=== PATIENT | male | born 1990 | race Caucasian/White ===

== ENCOUNTER 2017-06-22 16:13 | Emergency (ER) | payer MEDICAID ==
[2017-06-22 16:17] VITALS: BP 130/91
[2017-06-22] MEDS ORDERED: METHYLPREDNISOLONE INJ 125 MG/2 ML SDV IV ONE (17:50)
--- NOTE | 2017-06-22 17:53 | ER Document Report ---
ED General - General Mode of Arrival: Ambulatory Information source: Patient TRAVEL OUTSIDE OF THE [place] IN LAST 30 DAYS: No - HPI Similar symptoms previously: Yes Recently seen / treated by doctor: No <MARIA A FITZGERALD - Last Filed: 06/22/17 20:13> <KATELIN LE - Last Filed: 06/22/17 20:15> - General Chief Complaint: Leg Pain Stated Complaint: EYE PROBLEM Time Seen by Provider: 06/22/17 16:51 Notes: Patient is a 27 year old male presenting to the emergency department for eye and leg pain x3 days ago. Patient states he was diagnosed with wegeners granulomatosis x2 years ago and feels like he is having a flare up. Patient states his eyes feel sore and are red. Patient's Neurontin dosage was increased about 3 days ago and is not helping his symptoms. Patient does receive chemotherapy x1 per year for this. Patient denies any blurry vision, chest pain or shortness of breath. Patient has an appointment next week with [facility] in [place] who follow his condition. (MARIA A FITZGERALD) - Related Data Allergies/Adverse Reactions: No Known Allergies Allergy (Verified 06/22/17 16:15) Past Medical History - General Information source: Patient - Social History Smoking Status: Current Every Day Smoker Chew tobacco use (# tins/day): No Frequency of alcohol use: Occasional Drug Abuse: None Family History: None Patient has suicidal ideation: No Patient has homicidal ideation: No - Medical History Medical History: Other - wegeners granulomatosis Surgical Hx: Negative - Immunizations Hx Diphtheria, Pertussis, Tetanus Vaccination: Yes <MARIA A FITZGERALD - Last Filed: 06/22/17 20:13> Review of Systems - Review of Systems Constitutional: No symptoms reported EENT: See HPI, Eye pain Cardiovascular: No symptoms reported Respiratory: No symptoms reported Gastrointestinal: No symptoms reported Genitourinary: No symptoms reported Male Genitourinary: No symptoms reported Musculoskeletal: See HPI, Other - leg pain Skin: No symptoms reported Hematologic/Lymphatic: No symptoms reported Neurological/Psychological: No symptoms reported -: Yes All other systems reviewed and negative <MARIA A FITZGERALD - Last Filed: 06/22/17 20:13> Physical Exam - Vital signs Interpretation: Normal <MARIA A FITZGERALD - Last Filed: 06/22/17 20:13> <KATELIN LE - Last Filed: 06/22/17 20:15> - Vital signs Vitals: Temp Pulse Resp BP Pulse Ox 97.7 F 68 18 130/91 H 97 06/22/17 16:15 06/22/17 16:15 06/22/17 16:15 06/22/17 16:15 06/22/17 16:15 - Notes Notes: GENERAL: Alert, interacts well. No acute distress. HEAD: Normocephalic, atraumatic. EYES: Pupils equal, round, and reactive to light. Extraocular movements intact. Conjunctival injection which is worse on the right side of his eyes bilaterally , no subconjunctival hemorrhage noted. ENT: Oral mucosa moist, tongue midline. Normal oropharynx. NECK: Full range of motion. Supple. Trachea midline. LUNGS: Clear to auscultation bilaterally, no wheezes, rales, or rhonchi. No respiratory distress. HEART: Regular rate and rhythm. No murmurs, gallops, or rubs. ABDOMEN: Soft, non-tender. Non-distended. Bowel sounds present in all 4 quadrants. EXTREMITIES: Moves all 4 extremities spontaneously. No edema. NEUROLOGICAL: Alert and oriented x3. Normal speech. PSYCH: Normal affect, normal mood. SKIN: Warm, dry, normal turgor. No rashes or lesions noted. (MARIA A FITZGERALD) Course - Laboratory Result Diagrams: 06/22/17 18:00 06/22/17 18:00 - Consults [facility] at [facility] Time consulted: 17:06 <MARIA A FITZGERALD - Last Filed: 06/22/17 20:13> - Laboratory Result Diagrams: 06/22/17 18:00 06/22/17 18:00 <KATELIN LE - Last Filed: 06/22/17 20:15> - Re-evaluation Re-evalutation: 06/22/17 17:[address] Bailon who is the embedded systems engineer pipeline superintendent division for [facility] nephrology, recommends checking laboratory studies for renal function, urinalysis for urine sediment, red blood cells or RBC casts. If no major renal involvement at this time agrees that a course of steroids and outpatient follow-up would be reasonable. 06/22/17 19:03 CBC grossly unremarkable, CMP unremarkable, no signs of renal failure, no signs of liver damage, urinalysis unremarkable, no red blood cells or casts. For symptomatic relief patient will be treated with steroids and discharged home, asked to follow-up with nephrology as scheduled next week. (KATELIN LE) - Vital Signs Vital signs: Temp Pulse Resp BP Pulse Ox 97.7 F 68 18 130/91 H 97 06/22/17 16:15 06/22/17 16:15 06/22/17 16:15 06/22/17 16:15 06/22/17 16:15 - Laboratory Laboratory results interpreted by me: 06/22/17 06/22/17 18:00 18:00 Eosinophils % 8.0 H Absolute Eosinophils 0.8 H Calcium 10.4 H - Consults [facility] Reason for consultation: 06/22/17 17:06 Contacted [facility] to speak with Nephrology; the will call back. 06/22/17 17:[address] Bailon, embedded systems engineer about patient and recommendations. (MARIA A FITZGERALD) Discharge <MARIA A FITZGERALD - Last Filed: 06/22/17 20:13> <KATELIN LE - Last Filed: 06/22/17 20:15> - Discharge Clinical Impression: Wegeners granulomatosis, Prehypertension Condition: Stable Disposition: HOME, SELF-CARE Additional Instructions: Today your lab work did not show any signs of damage to your kidneys. We will treat you with steroids at this time to help decrease the symptoms that you are having from this likely flare with your Glen's granulomatosis. If you start seeing blood in your urine, if your symptoms worsen instead of improve or if you develop any new or concerning symptoms please return to the emergency department immediately. Please keep your follow-up appointment with nephrology next week. Prescriptions: Prednisone [Sterapred Ds] 1 pkg PO ASDIR PRN 12 Days [email or web address] PRN Reason: Scribe Attestation: 06/22/17 20:15 I personally performed the services described in the documentation, reviewed and edited the documentation which was dictated to the scribe in my presence, and it accurately records my words and actions. (KATELIN LE) Scribe Documentation - Scribe Written by Scribe:: Zacarias Lui 06/22/17 19:18 acting as scribe for :: Alessandra <MARIA A FITZGERALD - Last Filed: 06/22/17 20:13>
[2017-06-22 18:15] LABS: ABSOLUTE BASOPHILS # (AUTO) 0.1 10^3/uL (0.0-0.2); ABSOLUTE EOSINOPHILS # (AUTO) 0.8 10^3/uL (0.0-0.6); ABSOLUTE MONOCYTES (AUTO) 0.8 10^3/uL (0.1-1.4); ABSOLUTE NEUT (AUTO) 4.7 10^3/uL (1.7-8.2); BASOPHILS % (AUTO) 0.7 % (0-2); HEMATOCRIT 45.7 % (37.9-51.0); HEMOGLOBIN 15.6 g/dL (13.5-17.0); HGB HCT DIFFERENCE 1.1; LYMPHOCYTES % (AUTO) 38.5 % (13-45); MEAN CORPUSCULAR HEMOGLOBIN 29.6 pg (27.0-33.4); MEAN CORPUSCULAR HGB CONC 34.1 g/dL (32.0-36.0); MEAN CORPUSCULAR VOLUME 87 fl (80-97); MONOCYTES % (AUTO) 8.1 % (3-13); RED BLOOD COUNT 5.26 10^6/uL (4.35-5.55); RED CELL DISTRIBUTION WIDTH 13.8 % (11.5-14.0); SEGMENTED NEUTROPHILS % (AUTO) 44.7 % (42-78); WHITE BLOOD COUNT 10.5 10^3/uL (4.0-10.5)
[2017-06-22 18:23] LABS: APPEARANCE,URINE CLEAR; BILIRUBIN,URINE NEGATIVE (NEGATIVE); GLUCOSE, URINE NEGATIVE (NEGATIVE); KETONES,URINE NEGATIVE (NEGATIVE); LEUKOCYTE ESTERASE,URINE NEGATIVE (NEGATIVE); NITRITE,URINE NEGATIVE (NEGATIVE); PROTEIN,URINE NEGATIVE (NEGATIVE); URINE SPECIFIC GRAVITY 1.017; UROBILINOGEN,URINE NEGATIVE mg/dL (<2.0)
[2017-06-22 18:45] LABS: ALANINE AMINOTRANSFERASE 32 U/L (21-72); ALBUMIN 4.6 g/dL (3.5-5.0); ALKALINE PHOSPHATASE 97 U/L (38-126); ANION GAP 14 (5-19); ASPARTATE AMINO TRANSFERASE 20 U/L (17-59); BILIRUBIN,DIRECT 0.3 mg/dL (0.0-0.4); BILIRUBIN,TOTAL 0.6 mg/dL (0.2-1.3); BLOOD UREA NITROGEN 14 mg/dL (7-20); CALCIUM 10.4 mg/dL (8.4-10.2); CARBON DIOXIDE 26 mmol/L (22-30); CHLORIDE 103 mmol/L (98-107); CREATININE RESULT 0.92 mg/dL (0.52-1.25); GLUCOSE 93 mg/dL (75-110); POTASSIUM 4.6 mmol/L (3.6-5.0); SODIUM 142.8 mmol/L (137-145); TOTAL PROTEIN 7.5 g/dL (6.3-8.2)
[2017-06-22] MEDS ORDERED: HYDROCODONE/ACETAMINOPHEN 5-325 MG TABLET PO ONE (18:59)
[2017-06-22] MEDS ORDERED: HYDROCODONE/ACETAMINOPHEN 5-325 MG 6 TAB/DSPK PO PRN (19:16)
== END 2017-06-22 19:31 | disposition home or self-care (01) ==
LOC: ER 16:13
DX: M31.30 Wegener's granulomatosis without renal involvement (principal); R03.0 Elevated blood-pressure reading, without diagnosis of hypertension; M79.606 Pain in leg, unspecified; H57.10 Ocular pain, unspecified eye; F17.200 Nicotine dependence, unspecified, uncomplicated; Z79.899 Other long term (current) drug therapy
CPT/HCPCS: 99283; 96374; 36415; 85025; 80053; 81001; J2930

== ENCOUNTER 2018-03-26 03:08 | Emergency (ER) | payer MEDICAID ==
[2018-03-26] MEDS ORDERED: HYDROMORPHONE HCL INJ/PF 2 MG/ML AMPULE IV ONE (04:00)
[2018-03-26] MEDS ORDERED: METOCLOPRAMIDE HCL INJ/PF 10 MG/2 ML SDV IV ONE (04:00)
[2018-03-26] MEDS ORDERED: DIPHENHYDRAMINE HCL 50 MG/ML VIAL IV ONE (04:00)
[2018-03-26] MEDS ORDERED: DEXAMETHASONE SOD PHOS INJ 10 MG/1 ML VIAL IV ONE (04:01)
[2018-03-26] MEDS ORDERED: KETOROLAC TROMETHAMINE INJ/PF 30 MG/1 ML SDV IV ONE (04:01)
[2018-03-26] MEDS ORDERED: NORMAL SALINE 1000 ML 1,000 ML IV ONE (04:01)
--- NOTE | 2018-03-26 04:02 | ER Document Report ---
ED Headache - General Chief Complaint: Headache Stated Complaint: FACIAL PAIN Time Seen by Provider: 03/26/18 03:56 Notes: Patient is a 27-year-old male with a history of Glen's granulomatosis that comes emergency department for chief complaint of headache that has been worsening for the past 4 days. He states he does occasionally get very severe headaches and this is similar. He denies vomiting, he states he gets tingling on the right side of his face, he denies focal numbness or weakness, visual changes, fever, head injury, neck injury. He is on 20 mg of prednisone currently, follows with a provider in [place]. Denies any other medical history. Significant other at bedside. TRAVEL OUTSIDE OF THE [place] IN LAST 30 DAYS: No - Related Data Allergies/Adverse Reactions: No Known Allergies Allergy (Verified 06/22/17 16:15) Past Medical History - General Information source: Patient - Social History Smoking Status: Never Smoker Drug Abuse: None Lives with: Spouse/Significant other Family History: Reviewed & Not Pertinent Renal/ Medical History: Denies: Hx Peritoneal Dialysis Surgical Hx: Negative - Immunizations Hx Diphtheria, Pertussis, Tetanus Vaccination: Yes Review of Systems - Review of Systems Constitutional: No symptoms reported EENT: No symptoms reported Cardiovascular: See HPI Respiratory: No symptoms reported Gastrointestinal: No symptoms reported Genitourinary: No symptoms reported Male Genitourinary: No symptoms reported Musculoskeletal: No symptoms reported Skin: No symptoms reported Hematologic/Lymphatic: No symptoms reported Neurological/Psychological: See HPI Physical Exam - Vital signs Vitals: Temp Pulse Resp BP Pulse Ox 98.0 F 104 H 28 H 133/103 H 99 03/26/18 03:16 03/26/18 03:16 03/26/18 03:16 03/26/18 03:16 03/26/18 03:16 - Notes Notes: GENERAL: Alert, however he appears to be in a lot of pain, he is notably crying , he is holding his head HEAD: Normocephalic, atraumatic. EYES: Pupils equal, round, and reactive to light. Extraocular movements intact. ENT: Oral mucosa moist, tongue midline. [Nares patent, no nasal septal hematoma , TM's intact.] NECK: Full range of motion. Supple. Trachea midline. LUNGS: Clear to auscultation bilaterally, no wheezes, rales, or rhonchi. No respiratory distress. HEART: Regular rate and rhythm. No murmur ABDOMEN: Soft, non-tender. Non-distended. Bowel sounds present in all 4 quadrants. EXTREMITIES: Moves all 4 extremities spontaneously. No edema, normal radial and dorsalis pedis pulses bilaterally. No cyanosis. BACK: no cervical, thoracic, lumbar midline tenderness. No saddle anesthesia, normal distal neurovascular exam. NEUROLOGICAL: Alert and oriented x3. Normal speech. [cranial nerves II through XII grossly intact]. PSYCH: Patient tearful and appears to be in pain SKIN: Warm, dry, normal turgor. No rashes or lesions noted. Course - Re-evaluation Re-evalutation: On initial evaluation patient is very uncomfortable. Patient was treated with migraine cocktail, pain medicine, and dexamethasone because of his vasculitis history. On reevaluation patient is a normal neurological exam, he is sleeping. Patient was aroused, he states his headache is completely gone. He is very grateful. He asks what he was given. Because of 4 day duration, history of the same, and resolution of headache I have low suspicion of intracranial hemorrhage, venous sinus thrombosis, subarachnoid hemorrhage, meningitis. Patient states he has a 3 day follow-up with neurology already scheduled. He requests a few Berkley because he has been given this in situations like this in the past and has needed it before. He was provided with a few. Discussed follow-up and return precautions in detail, patient and significant other state understanding and agreement. - Vital Signs Vital signs: Temp Pulse Resp BP Pulse Ox 98.7 F 104 H 28 H 129/72 H 96 03/26/18 06:05 03/26/18 03:16 03/26/18 03:16 03/26/18 06:05 03/26/18 06:05 Discharge - Discharge Clinical Impression: Headache Qualifiers: Headache type: unspecified Headache chronicity pattern: acute headache Intractability: not intractable Qualified Code(s): R51 - Headache Condition: Stable Disposition: HOME, SELF-CARE Additional Instructions: You have been treated with dexamethasone tonight. Continue current medications, please follow-up on with your provider as planned for additional evaluation and management. Return for any concerning or worsening symptoms including fever, vomiting, severe headache, or any other concerning symptoms. Prescriptions: Hydrocodone/Acetaminophen [Berkley 5-325 mg Tablet] 1 - 2 tab PO ASDIR #8 tablet Forms: Return to Work
[2018-03-26] MEDS ORDERED: HYDROCODONE/ACETAMINOPHEN 5-325 MG (6 TAB/ER DISP) PO PRN (05:50)
[2018-03-26 06:12] VITALS: BP 129/72
== END 2018-03-26 06:14 | disposition home or self-care (01) ==
LOC: ER 03:08
DX: R51 Headache (principal); R20.2 Paresthesia of skin; M31.30 Wegener's granulomatosis without renal involvement; Z79.52 Long term (current) use of systemic steroids
CPT/HCPCS: 99284; 96361; 96374; 96375; J1200; J1885; J2765; J1170; J7030; J1100